=== PATIENT | female | born 1985 | race Caucasian/White ===

== ENCOUNTER 2017-04-15 13:19 | Outpatient (CLI) | payer MEDICAID | END 2017-04-15 14:58 | disposition home or self-care (01) | LOC: OBT 13:19 → L-D 13:19 → OBT 14:58 | DX: O28.1 Abnormal biochemical finding on antenatal screening of mother (principal); Z3A.33 33 weeks gestation of pregnancy | CPT/HCPCS: 76818 ==

== ENCOUNTER 2017-05-01 20:10 | Outpatient (CLI) | payer MEDICAID ==
[2017-05-01] MEDS ORDERED: LACTATED RINGER'S 500 ML IV (21:30)
[2017-05-01] MEDS: LACTATED RINGER'S 1,000 ML IV (21:37)
[2017-05-01] MEDS: TERBUTALINE 1 MG/ML INJ SC ×2 (21:40→22:18)
== END 2017-05-01 23:57 | disposition home or self-care (01) ==
LOC: OBT 20:10 → L-D 20:12 → OBT 23:57
DX: O60.03 Preterm labor without delivery, third trimester (principal); Z3A.35 35 weeks gestation of pregnancy
CPT/HCPCS: 36415; 96360; 96361; 96372

== ENCOUNTER 2017-05-08 15:21 | Outpatient (CLI) | payer MEDICAID ==
[2017-05-08] MEDS: TERBUTALINE 1 MG/ML INJ SC (17:54)
[2017-05-08] MEDS: LACTATED RINGER'S 1,000 ML IV (17:54)
[2017-05-08 17:55] LABS: ADD MAN DIFF? NO
[2017-05-08 18:01] LABS: WHITE BLOOD COUNT 9.3 10^3/ul (4.8-10.8)
[2017-05-08 18:01] LABS: BASOPHILS % 0.4 % (0.0-2.0); EOSINOPHILS # 0.1 10^3/ul (0.0-0.5); EOSINOPHILS % 0.5 % (0.0-7.0); HEMATOCRIT 30.8 % (37.0-47.0); HEMOGLOBIN 10.4 g/dl (12.0-16.0); LYMPHOCYTES # 1.9 10^3/ul (0.8-2.9); LYMPHOCYTES % 20.2 % (15.0-51.0); MEAN CORPUSCULAR HEMOGLOBIN 29.8 pg (29.0-33.0); MEAN CORPUSCULAR HGB CONC 33.8 g/dl (32.0-37.0); MEAN CORPUSCULAR VOLUME 88.3 fl (82.0-101.0); MEAN PLATELET VOLUME 10.9 fl (7.4-10.4); MONOCYTE # 0.7 10^3/ul (0.3-0.9); MONOCYTES % 7.2 % (0.0-11.0); NEUTROPHIL # 6.6 10^3/ul (1.6-7.5); NEUTROPHILS % 71.1 % (39.0-77.0); PLATELET COUNT 214 10^3/UL (140-415); RED BLOOD COUNT 3.49 10^6/ul (4.20-5.40); RED CELL DISTRIBUTION WIDTH 13.7 % (11.5-14.5)
[2017-05-08 18:08] LABS: ADD UMIC YES; UR ASCORBIC ACID NEGATIVE (NEGATIVE); UR BACTERIA MODERATE /HPF (NONE SEEN); UR BILIRUBIN (Dip) NEGATIVE (NEGATIVE); UR BLOOD (Dip) NEGATIVE (NEGATIVE); UR CLARITY SLIGHTLY CLOUDY (CLEAR); UR COLOR YELLOW (YELLOW); UR GLUCOSE (Dip) NEGATIVE (NEGATIVE); UR KETONES (Dip) 1+ mg/dL (NEGATIVE); UR LEUKOCYTE ESTERASE (Dip) 1+ Leu/ul (NEGATIVE); UR MUCUS FEW /HPF (NONE SEEN); UR NITRITE (Dip) NEGATIVE (NEGATIVE); UR RBC 1 /HPF (0-5); UR SPECIFIC GRAVITY (Dip) 1.018 (1.003-1.030); UR SQUAMOUS EPITHELIAL CELL MODERATE /HPF (FEW); UR TOTAL PROTEIN (Dip) NEGATIVE (NEGATIVE); UR UROBILINOGEN (Dip) 1+ mg/dL (NEGATIVE); UR WBC 6 /HPF (0-5)
== END 2017-05-08 19:07 | disposition home or self-care (01) ==
LOC: OBT 15:21 → L-D 15:23 → OBT 19:07
DX: O26.893 Other specified pregnancy related conditions, third trimester (principal); Z3A.36 36 weeks gestation of pregnancy; R10.30 Lower abdominal pain, unspecified; V49.9XXA Car occupant (driver) (passenger) injured in unspecified traffic accident, initial encounter; Y92.410 Unspecified street and highway as the place of occurrence of the external cause
CPT/HCPCS: 36415; 76818; 81001; 85025; 96372

== ENCOUNTER 2017-05-27 10:33 | Inpatient (IN) | payer MEDICAID ==
[2017-05-27 11:37] LABS: ADD MAN DIFF? NO
[2017-05-27 11:41] LABS: WHITE BLOOD COUNT 9.3 10^3/ul (4.8-10.8)
[2017-05-27 11:41] LABS: BASOPHILS % 0.4 % (0.0-2.0); EOSINOPHILS # 0.1 10^3/ul (0.0-0.5); EOSINOPHILS % 0.6 % (0.0-7.0); HEMATOCRIT 32.1 % (37.0-47.0); LYMPHOCYTES # 1.6 10^3/ul (0.8-2.9); LYMPHOCYTES % 17.4 % (15.0-51.0); MEAN CORPUSCULAR HEMOGLOBIN 29.8 pg (29.0-33.0); MEAN CORPUSCULAR HGB CONC 34.3 g/dl (32.0-37.0); MEAN PLATELET VOLUME 11.1 fl (7.4-10.4); MONOCYTE # 0.6 10^3/ul (0.3-0.9); MONOCYTES % 6.1 % (0.0-11.0); NEUTROPHIL # 6.9 10^3/ul (1.6-7.5); NEUTROPHILS % 74.5 % (39.0-77.0); PLATELET COUNT 230 10^3/UL (140-415); RED BLOOD COUNT 3.69 10^6/ul (4.20-5.40); RED CELL DISTRIBUTION WIDTH 13.3 % (11.5-14.5)
[2017-05-27 12:00] LABS: INR 1.01; PROTIME 13.4 Sec (11.9-14.9)
[2017-05-27] MEDS ORDERED: CARBOPROST 250 MCG INJ IM ×2 (12:00→21:00)
[2017-05-27] MEDS ORDERED: OXYTOCIN 30 UNITS/LR 500 ML IV ×2 (12:00→21:00)
[2017-05-27] MEDS ORDERED: MISOPROSTOL 200 MCG TAB PR ×2 (12:00→21:00)
[2017-05-27] MEDS ORDERED: METHYLERGONOVINE 0.2 MG INJ IM ×2 (12:00→21:00)
[2017-05-27 12:01] LABS: PARTIAL THROMBOPLASTIN TIME 28.1 Sec (25.0-35.0)
[2017-05-27 12:33] LABS: HEPATITIS B SURFACE ANTIGEN NEGATIVE (NEGATIVE)
[2017-05-27] MEDS: LACTATED RINGER'S 1,000 ML IV ×3 (13:17→23:06)
[2017-05-27] MEDS ORDERED: OXYTOCIN 10 UNIT INJ (14:22)
[2017-05-27] MEDS ORDERED: FENTAnyl 50 MCG/ML VIAL (14:22)
[2017-05-27] MEDS ORDERED: morphine SULFATE/PF (10 MG/10 ML) INJ (14:22)
[2017-05-27] MEDS ORDERED: PHENYLephrine (100 MCG/ML) 5ML SYG (14:22)
[2017-05-27] MEDS ORDERED: METOCLOPRAMIDE 10 MG INJ (14:22)
[2017-05-27 15:01] LABS: RAPID PLASMA REAGIN NONREACTIVE (NR)
[2017-05-27] MEDS: CITRIC ACID/SODIUM CITRATE 15 ML CUP PO (15:07)
[2017-05-27] MEDS: ONDANSETRON 4 MG INJ IV (15:08)
[2017-05-27] MEDS: CEFAZOLIN 2 GM/50 ML (PMX) 50 ML IV ×2 (15:29→21:24)
[2017-05-27] MEDS ORDERED: DIPHENHYDRAMINE 50 MG INJ (16:13)
[2017-05-27] MEDS ORDERED: ALBUTEROL 0.083% (NEB) 2.5 MG/3 ML AMP HHN (16:30)
[2017-05-27] MEDS ORDERED: morphine 2 MG INJ IV ×2 (16:30)
[2017-05-27] MEDS ORDERED: NALOXONE (0.4 MG/ML) INJ IV (16:30)
[2017-05-27] MEDS ORDERED: MEPERIDINE 25 MG INJ IV (16:30)
[2017-05-27] MEDS ORDERED: EPHEDrine SULFATE 50 MG/5 ML SYG IV (16:30)
[2017-05-27] MEDS ORDERED: TRIMETHOBENZAMIDE 100 MG/ML VIAL IM ×2 (16:30)
[2017-05-27] MEDS ORDERED: OXYCODONE/ACETAMINOPHEN (5/325) TAB PO ×2 (16:30)
[2017-05-27] MEDS ORDERED: ONDANSETRON 4 MG INJ IV ×2 (16:30)
[2017-05-27] MEDS ORDERED: DIPHENHYDRAMINE 50 MG INJ IV ×2 (16:30)
[2017-05-27] MEDS ORDERED: HYDROmorphONE (0.2 MG/ML) 10ML SYG IV ×2 (16:30)
[2017-05-27] MEDS ORDERED: IPRATROPIUM (NEB) 0.5 MG/2.5 ML AMP HHN (16:30)
[2017-05-27] MEDS ORDERED: LABETALOL HCL 20MG INJ IV (16:30)
[2017-05-27] MEDS ORDERED: hydrALAzine 20 MG INJ IV (16:30)
[2017-05-27] MEDS ORDERED: FENTAnyl 50 MCG/ML VIAL IV ×3 (16:30)
[2017-05-27] MEDS ORDERED: NALBUPHINE HCL (10 MG/1 ML) INJ IV (16:30)
[2017-05-27] MEDS: KETOROLAC 30 MG INJ IV (17:17)
[2017-05-27] MEDS: HYDROmorphONE (0.2 MG/ML) 10ML SYG IV (18:05)
[2017-05-27] MEDS: OXYTOCIN 30 UNITS/LR 500 ML IV (18:39)
[2017-05-27] MEDS ORDERED: NA PHOSPHATE/BIPHOS 133 ML ENEMA PR (21:00)
[2017-05-27] MEDS ORDERED: HYDROCODONE/APAP (5/325) TAB PO (21:00)
[2017-05-27] MEDS: SENNA/DOCUSATE NA (8.6MG/50MG) TAB PO (21:24)
[2017-05-27] MEDS: IBUPROFEN 800 MG TAB PO (21:26)
[2017-05-28] MEDS: KETOROLAC 30 MG INJ IV ×2 (03:22→13:33)
[2017-05-28] MEDS: CLINDAMYCIN 300 MG CAP PO ×3 (05:11→17:29)
[2017-05-28] MEDS: IBUPROFEN 800 MG TAB PO ×3 (05:11→21:48)
[2017-05-28] MEDS: CEFAZOLIN 2 GM/50 ML (PMX) 50 ML IV ×2 (05:11→13:33)
[2017-05-28] MEDS: LACTATED RINGER'S 1,000 ML IV ×3 (09:08→20:33)
[2017-05-28] MEDS: SENNA/DOCUSATE NA (8.6MG/50MG) TAB PO ×2 (09:08→21:47)
[2017-05-28 09:16] LABS: ADD MAN DIFF? NO
[2017-05-28 09:19] LABS: WHITE BLOOD COUNT 11.1 10^3/ul (4.8-10.8)
[2017-05-28 09:19] LABS: BASOPHIL # 0.1 10^3/ul (0.0-0.1); BASOPHILS % 0.5 % (0.0-2.0); EOSINOPHILS % 0.2 % (0.0-7.0); HEMATOCRIT 27.1 % (37.0-47.0); HEMOGLOBIN 9.5 g/dl (12.0-16.0); LYMPHOCYTES # 1.4 10^3/ul (0.8-2.9); LYMPHOCYTES % 12.2 % (15.0-51.0); MEAN CORPUSCULAR HEMOGLOBIN 30.4 pg (29.0-33.0); MEAN CORPUSCULAR HGB CONC 35.1 g/dl (32.0-37.0); MEAN CORPUSCULAR VOLUME 86.9 fl (82.0-101.0); MEAN PLATELET VOLUME 11.2 fl (7.4-10.4); MONOCYTE # 0.8 10^3/ul (0.3-0.9); MONOCYTES % 6.9 % (0.0-11.0); NEUTROPHIL # 8.9 10^3/ul (1.6-7.5); NEUTROPHILS % 79.8 % (39.0-77.0); PLATELET COUNT 200 10^3/UL (140-415); RED BLOOD COUNT 3.12 10^6/ul (4.20-5.40); RED CELL DISTRIBUTION WIDTH 13.5 % (11.5-14.5)
[2017-05-28] MEDS: OXYCODONE/ACETAMINOPHEN (5/325) TAB PO (17:39)
[2017-05-28] MEDS: BISACODYL 10 MG SUPP PR (18:15)
[2017-05-29] MEDS: CLINDAMYCIN 300 MG CAP PO ×4 (00:11→17:48)
[2017-05-29] MEDS: OXYCODONE/ACETAMINOPHEN (5/325) TAB PO ×2 (00:56→15:59)
[2017-05-29] MEDS: LANOLIN 7 GM TUBE TOP (00:56)
[2017-05-29] MEDS: IBUPROFEN 800 MG TAB PO ×3 (05:46→21:49)
[2017-05-29 08:18] LABS: ADD MAN DIFF? NO
[2017-05-29 08:23] LABS: BASOPHILS % 0.4 % (0.0-2.0); EOSINOPHILS # 0.1 10^3/ul (0.0-0.5); EOSINOPHILS % 1.3 % (0.0-7.0); HEMATOCRIT 26.6 % (37.0-47.0); HEMOGLOBIN 8.9 g/dl (12.0-16.0); LYMPHOCYTES # 1.2 10^3/ul (0.8-2.9); LYMPHOCYTES % 12.4 % (15.0-51.0); MEAN CORPUSCULAR HEMOGLOBIN 30.2 pg (29.0-33.0); MEAN CORPUSCULAR HGB CONC 33.5 g/dl (32.0-37.0); MEAN CORPUSCULAR VOLUME 90.2 fl (82.0-101.0); MEAN PLATELET VOLUME 11.3 fl (7.4-10.4); MONOCYTE # 0.8 10^3/ul (0.3-0.9); MONOCYTES % 8.4 % (0.0-11.0); NEUTROPHIL # 7.3 10^3/ul (1.6-7.5); NEUTROPHILS % 76.9 % (39.0-77.0); PLATELET COUNT 188 10^3/UL (140-415); RED BLOOD COUNT 2.95 10^6/ul (4.20-5.40); RED CELL DISTRIBUTION WIDTH 13.7 % (11.5-14.5)
[2017-05-29 08:23] LABS: WHITE BLOOD COUNT 9.4 10^3/ul (4.8-10.8)
[2017-05-29] MEDS: SENNA/DOCUSATE NA (8.6MG/50MG) TAB PO ×2 (09:08→21:49)
[2017-05-29] MEDS: MEASLES,MUMPS,RUBELLA VACCINE INJ SC* (14:25)
[2017-05-29] MEDS: DIPHTH/TET/ACEL PERTUSS (ADULT) 0.5 ML VIAL IM* (14:25)
[2017-05-30] MEDS: CLINDAMYCIN 300 MG CAP PO ×3 (00:31→12:00)
[2017-05-30] MEDS: IBUPROFEN 800 MG TAB PO ×2 (05:45→15:00)
[2017-05-30] MEDS: SENNA/DOCUSATE NA (8.6MG/50MG) TAB PO (09:22)
[2017-05-30] MEDS: OXYCODONE/ACETAMINOPHEN (5/325) TAB PO (15:01)
== END 2017-05-30 15:40 | disposition home or self-care (01) | DRG 766 ==
LOC: L-D 10:33 → PP1 20:05
PROVIDERS: Obstetrics & Gynecology
PROC: 10D00Z1 Extraction of Products of Conception, Low, Open Approach (ICD-10-PCS; principal; 2017-05-27 14:00)
DX: O34.211 Maternal care for low transverse scar from previous cesarean delivery (principal); Z37.0 Single live birth; Z3A.39 39 weeks gestation of pregnancy
CPT/HCPCS: 85025; 85610; 85730; 86592; 86850; 86900; 86901; 87340; 94760